=== PATIENT | male | born 1980 | race Caucasian/White ===

== ENCOUNTER 2020-09-13 11:33 | Emergency (ER) | payer BC, SELFPAY ==
[2020-09-13 11:50] VITALS: BP 132/92; PULSE 62; RESP 16; TEMP 36.8; O2SAT 98; BMI 26.4
--- NOTE | 2020-09-13 11:56 | HMH.EDUTC ---
[facility] [place] Disposition Clinical Impression: Acute sinusitis Qualifiers: Sinusitis location: unspecified location Recurrence: non-recurrent Qualified Code(s): J01.90 - Acute sinusitis, unspecified Disposition: Home, Self-Care Condition on Discharge: Good Instructions: Sinusitis, DI for Sinusitis Additional Instructions: Drink plenty of fluids. Take tylenol or ibuprofen for pain or fever. Take the medications as directed. Follow up with your regular doctor. GO TO THE ER FOR ANY WORSENING SYMPTOMS Prescriptions: Brompheniramine/Pseudoephed/Dm [Bromfed Dm Cough Syrup] 5 ml PO Q6HP PRN #240 syrup PRN Reason: Cough Transmission Status: Received by [facility] # methylPREDNISolone [Medrol] 4 mg PO DIRECTED 6 Days #21 [email or web address] Transmission Status: Received by [facility] # Azithromycin [Z-Kiran 250mg Tab*] 250 mg PO UD DOSE PK #6 tab Transmission Status: Received by [facility] # Referrals: Brad Cordoba [Primary Care Provider] - Time of Disposition: 12:05 Medical Decision Making - Medical Records Medical records reviewed: No: I reviewed the patient's medical records. - Ben Inquiry Pt receiving controlled substance: No Vital Signs: 09/13/20 11:50 09/13/20 12:07 Temperature 98.3 F 98.3 F Temperature Source Oral Pulse Rate 62 Pulse Rate [Left Brachial] 62 Respiratory Rate 16 16 Blood Pressure 132/92 H Blood Pressure [Left Arm] 132/92 H Blood Pressure Mean [Left Arm] 105 Blood Pressure Source [Left Arm] Automatic Cuff Blood Pressure Position [Left Arm] Sitting 02 Sat by Pulse Oximetry 98 Oxygen Delivery Method Room Air - Lab Data Lab Results 09/13/20 11:45: SARS-CoV-2 (PCR) Positive [facility] [place] HPI - General Stated complaint: sinus pressure,congestion,sore throat Time Seen by Provider: 09/13/20 11:56 Mode of Arrival: Ambulatory Source of Information: Patient Limitations: No Limitations Description of Symptoms (Recalled from Triage Doc. by RN): PATIENT C/O SINUS CONGESTION/ALLERGY SYMPTOMS. REQUESTING COVID TEST HEENT Symptoms (Recalled from RN notes): Yes Resp Symptoms (Recalled from RN notes): No Skin Symptoms (Recalled from RN notes): No MS Symptoms (Recalled from RN notes): No Functional Status (Recalled from RN notes): WNL - History of Present Illness Provider Complaint: He c/o 2 days of runny nose, sinus congestion, sore throat and feeling bad. He denies any known exposure to covid-19. - Related Data Previous Rx's Medication Instructions Recorded Azithromycin [Z-Kiran 250mg Tab*] 250 mg PO UD DOSE PK #6 tab 09/13/20 Brompheniramine/Pseudoephed/Dm 5 ml PO Q6HP PRN #240 syrup 09/13/20 [Bromfed Dm Cough Syrup] methylPREDNISolone [Medrol] 4 mg PO DIRECTED 6 Days #21 09/13/20 tab.[email or web address] Allergies Allergy/AdvReac Type Severity Reaction Status Date / Time No Known Allergies Allergy Verified 03/06/19 09:39 - Worker's Comp Is this a Worker's Comp case?: No [facility] History - Hepatitis A Screen Drug use history?: No High risk sexual behaviors?: No History of sexually transmitted infection?: No Currently employed?: No Childcare worker?: No Do you have indoor plumbing?: Yes Do you have electricity?: Yes Attestation statement:: This patient has been screened for Hepatitis A risk factors. I have reviewed the patient's past medical history: Yes Medical History: Reports:: Anxiety, Depression, Hyperlipidemia, Hypertension Comment: PTSD, ANNE-MARIE Other Surgeries: Yes: Other Fractures: Yes (right wrist) Comment: korinik - Social History Smoking Status: Never smoker Alcohol Intake: never Alcohol Intake Frequency:: 3 or more drinks per day Substance Use Type: denies use Occupational Status: other - Psychiatric History Pschychiatric History:: Reports:: Anxiety, Depression Family Hx:: Coronary Artery Disease, Diabetes, Stroke ROS Obtained: Yes All systems reviewed & no additional complaints - Constitutional Con
[2020-09-13 12:07] VITALS: BP 132/92; PULSE 62; RESP 16; TEMP 36.8; O2SAT 98
[2020-09-13 19:50] LABS: Covid-19 Nasal PCR Sendout Lex POSITIVE
--- NOTE | 2020-09-13 20:29 | PC.NURSE ---
PATIENT NOTIFIED OF POSITIVE COVID RESULTS, PATIENT INSTRUCTED TO CONTINUE TO QUARANTINE AND THAT HEALTH DEPT WILL BE CONTACTING HIM, PATIENT ACKNOWLEDGED UNDERSTANDING
== END 2020-09-13 12:10 | disposition home or self-care (01) ==
PROVIDERS: Emergency Provider Nurse Practitioner Family; PCP Internal Medicine
DX: U07.1 COVID-19 (principal); J01.90 Acute sinusitis, unspecified; F41.8 Other specified anxiety disorders; E78.5 Hyperlipidemia, unspecified; I10 Essential (primary) hypertension
CPT/HCPCS: 99201; U0004

== ENCOUNTER 2025-10-11 10:00 | Outpatient (RCR) | payer OTHER, SELFPAY | END 2025-10-11 23:59 | disposition home or self-care (01) | LOC: PT 10:00 | PROVIDERS: Visit Provider Internal Medicine | DX: M54.2 Cervicalgia (principal); M25.511 Pain in right shoulder | CPT/HCPCS: 97014; 97110; 97140; 97162; G0283 ==

== ENCOUNTER 2025-11-14 09:00 | Outpatient (RCR) | payer OTHER, SELFPAY | END 2025-11-14 23:59 | disposition home or self-care (01) | LOC: PT 09:00 | PROVIDERS: Visit Provider Internal Medicine | DX: M54.2 Cervicalgia (principal) | CPT/HCPCS: 97014; 97110; 97140; 97530; G0283 ==